=== PATIENT | female | born 1990 | race African-American/Black ===

== ENCOUNTER 2020-02-23 08:53 | Outpatient (CLI) | payer OTHER ==
[2020-02-23 18:54] LABS: SARS-CoV-2 MS2 Positive; SARS-CoV-2 N Gene Negative; SARS-CoV-2 S Gene Negative; SARS-CoV-2 by NAA Not Detected (NotDetected); SARS-CoV-2 orf1ab Negative
== END 2020-02-23 08:54 | disposition home or self-care (01) ==
LOC: LABSCS 08:53
PROVIDERS: ATTEND Emergency Medicine
DX: Z20.828 Contact with and (suspected) exposure to other viral communicable diseases (principal)
CPT/HCPCS: 87635; U0003

== ENCOUNTER 2020-02-26 08:43 | Day surgery (SDC) | payer OTHER ==
[2020-02-26 09:03] VITALS: BMI 24.5
[2020-02-26] MEDS ORDERED: Acetaminophen 500 MG TAB PO PRN (09:30)
[2020-02-26] MEDS ORDERED: Iron Sucrose Complex 500 MG in Sodium Chloride 0.9% 250 ML 250 ML IVPB SCH (09:30)
[2020-02-27] MEDS ORDERED: FLU VACC QS2020-21(6MOS UP)/PF 60 MCG/0.5 ML SYRINGE IM ONE (09:15)
== END 2020-02-26 14:50 | disposition home health service (06) ==
LOC: L&D/OP 08:43
PROVIDERS: ATTEND Emergency Medicine
DX: O99.013 Anemia complicating pregnancy, third trimester (principal); Z3A.00 Weeks of gestation of pregnancy not specified
CPT/HCPCS: J1756; J7050

== ENCOUNTER 2020-04-09 08:03 | Inpatient (IN) | payer OTHER ==
[2020-04-09 08:38] VITALS: BMI 27.1
[2020-04-09] MEDS ORDERED: Methylergonovine 0.2 MG/ML VIAL IM PRN (08:40)
[2020-04-09] MEDS ORDERED: Diphenoxylate HCl/Atropine Tablet PO PRN ×2 (08:40)
[2020-04-09] MEDS ORDERED: hydrALAZINE 20 MG/ML VIAL SLOW IVP PRN ×2 (08:40→17:16)
[2020-04-09] MEDS ORDERED: Acetaminophen 500 MG TAB PO PRN (08:40)
[2020-04-09] MEDS ORDERED: Ondansetron PF 4 MG/2 ML Vial IVP PRN ×3 (08:40→17:16)
[2020-04-09] MEDS ORDERED: Butorphanol Tartrate 1 MG/ML VIAL SLOW IVP PRN (08:40)
[2020-04-09] MEDS ORDERED: Carboprost 250 MCG/ML AMP IM PRN (08:40)
[2020-04-09] MEDS ORDERED: Misoprostol 200 MCG TAB PR PRN (08:40)
[2020-04-09] MEDS ORDERED: Ibuprofen 800 MG TAB PO PRN (08:40)
[2020-04-09] MEDS ORDERED: Promethazine HCl 25 MG/ML VIAL IM PRN ×2 (08:40→11:27)
[2020-04-09] MEDS ORDERED: Lidocaine 1% (PF) 30 ML VIAL SC PRN (08:40)
--- NOTE | 2020-04-09 08:40 | PDOC.FPROB ---
FMR OB H&P: HPI - History of Present Illness Chief Complaint: ctx Indentification: 29yo @ 38.3 by LMP /8.5wk sono History of Present Illness: 29yo @ 38.3 by LMP /8.5wk sono complicated by iron def anemia, Tob/THC use during presents for ctx. States onset of ctx last night at about 2200, intermittent, and able to sleep some overnight. This morning ctx q 10- 15min but increased intensity prompting visit to L&D. Denies VB, LOF, VD, dysuria, BRIAN, vision changes, CP, SOB, n/v. Endorses movement. Primary Care Physician: DORINA Stone FMR OB H&P: Current - Care : 9 Para: [id number] Gestational age: 38.3 Due date: 04/20/20 Dating Criteria: LMP/8.5wk sono Course/Complications: Tob use, THC use Iron def anemia - OB Labs Blood type: A RH: positive Antibody Screen: negative HIV: negative RPR: negative HepBsAg: negative Rubella: immune Gonorrhea: negative Chlamydia: negative Pap Smear: NILM 1 hour gtt: 65 A1c: 5.8 GBS: positive H&H: 9.2 - Additional Ultrasound Additional: 04/07 US Cephalic, placenta R lateral, SEGUNDO 4.66 FMR OB H&P: History - Past Medical History PMH: Denies - OB History OB History: Prior pregnancies with PreE and GDM - 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 No EtOH. - Family History Family History: Denies FMR OB H&P: Medications - Current Home Medications: Medication Instructions Recorded Confirmed Type Vitamin 1 tablet PO DAILY #0 tab 10/02/14 04/09/20 Rx Acyclovir 200 mg PO DAILY 04/09/20 04/09/20 History Allergies/Adverse Reactions: Allergies Allergy/AdvReac Type Severity Reaction Status Date / Time No Known Allergies Allergy Verified 08/09/19 22:23 FMR OB H&P: ROS - Review of Systems General: denies: fever/chills, night sweats, fatigue Eyes: denies: vision changes ENT: denies: nasal congestion, rhinorrhea, sore throat Cardiovascular: denies: chest pain, palpitation Respiratory: denies: cough, congestion, shortness of breath Gastrointestinal: denies: abdominal pain, indigestion Genitourinary (Female): reports: contractions. denies: dysuria, vaginal discharge, vaginal bleeding Musculoskeletal: denies: pain, stiffness Neurologic: denies: numbness Integumentary: denies: rash Psychological: denies: depression, anxiety FMR OB H&P: Vital Signs - Maternal Vital signs: Vital Signs - First Documented Temp Pulse Resp BP 99.1 F 78 18 110/61 04/09/20 08:29 04/09/20 08:29 04/09/20 08:29 04/09/20 08:29 - Heart Tones Baseline: 130 Variability: minimal Acceleration: present Deceleration: late (1 single shallow late, no recurrence) Category: category 2 [place] contractions every: 4min FMR OB H&P: Physical Exam - Physical Exam General: NAD, awake, alert and oriented HEENT: EOMI, MMM, conjunctiva clear Neck: supple, trachea midline Heart: RRR, normal S1/S2, no murmurs/rubs/gallops, no edema General: CTAB, no respiratory distress, good air movement, no wheezing Abdomen: soft, gravid, non-tender, bowel sound present Musculoskeletal: FROM in all four extremities Neurological: no focal deficit Skin: no rash Psychiatric: intact recent and remote memory, normal mood and affect - Pelvic Exam Vulva: normal hair distribution, no masses, no lesions, no discharge, no blood, normal rugae Cervix: no masses, no lesions, no blood SVE: 3.5/-1 FMR OB H&P: A/P - Problem List (1) Current Visit: No Status: Acute Qualifiers: Weeks of gestation: 38 weeks Qualified Code(s): Z3A.38 - 38 weeks gestation of Disposition: 29yo @ 38.3 by LMP /8.5wk sono presents with ctx #Term SIUP - 38.3wk - Placenta Right lateral - Was 2/20/-3 on 03/31 clinic SVE - SVE @ 0830 3.5 - Cat 2 strip with minimal variability and single late decel - Started on D5LR - Continuous monitoring - Admit for labor - expectant management #GBS positive - started on Galdino #Grandmultiparity - 2 16G IV - monitor for PPH #H/o HSV - No sxs, on Acyclovir - Spec exam negative for any lesions #Iron def anemia - s/p infusion on 02/25 - CBC on admission - monitor PP #Oligo - SEGUNDO 4.66 on US on 04/07 #Tob use during - counseled, aware #THC abuse - denies current use - UDS #Isolated EIF on anatomy - aware #H/o PreE - was on ASA, stopped about 1 week ago - initial BP WNL, monitor #H/o Trich and Chlamydia - Chlamydia negative this - Trich treated and VICTORINO negative #Elevated A1C - A1C 5.8, passed 1hr GTT - Will need PP monitor PCP: DORINA Stone IVF: D5LR @ 125cc/hr Diet: NPO ice chips VTE: Ambulate Discussion: Date/Time: 04/09/20 0840 This H&P was discussed with Dr. Castaneda who agrees with the above documentation and plan. Addendum - Attending - Attending Attestation Date/Time: 04/09/20 0932 I personally evaluated the patient and discussed the management with Dr. Griffith. I agree with the History, Examination, Assessment and Plan documented above with any addition or exceptions noted below. 29 yo at 38.3 wk dated by LMP c/w 8.6 wk US. presented with cc of contractions. /-1. intact. GBS positive. complicated by anemia and 1T THC use with subsequent negative UDS. SEGUNDO in clinic 4.88 cm on 04/07. Initially FHT cat 2 for minimal variability and one possible late decel both of which have revolved with D5LR. Given grandmultiparity and hx of precipitous deliveries plan to admit for latent labor and borderline oligo. GBS PPx started. will perform bedside SEGUNDO re-evaluate status. Expectant management at this time. Will augment after second dose PCN.
[2020-04-09] MEDS ORDERED: Penicillin G Potassium 5 MILL.UNITS in Sodium Chloride 0.9% 100 ML IVPB SCH (08:45)
[2020-04-09] MEDS ORDERED: Dextrose 5%-Lactated Ringers 1,000 ML IV SCH (08:45)
[2020-04-09] MEDS ORDERED: Penicillin G Potassium 5 MILL.UNITS VIAL ONE (08:51)
[2020-04-09] MEDS ORDERED: Bupivacaine 0.25% HCL 30 ML VIAL ONE (09:42)
[2020-04-09 10:09] LABS: Hemoglobin 10.5 g/dL (12.0-16.0); Mean Corpuscular HGB CONC 33.3 g/dL (32.0-36.0); Mean Corpuscular Hemoglobin 29.2 pg (27.0-31.0); Mean Corpuscular Volume 87.8 fL (78.0-98.0); Platelet Count 143 thou/uL (130-400); RBC Distribution Width 14.2 % (11.5-14.5); Red Blood Cell (RBC) Count 3.58 mill/uL (4.20-5.40); White Blood Cell (WBC) Count 7.9 thou/uL (4.8-10.8)
[2020-04-09 10:51] LABS: HBSAg Index 0.22 S/CO (0-0.99); Hep B Surf Ag Non-Reactive S/CO (NonReactive); Syphilis Antibody Nonreactive (Nonreactive); Syphilis Antibody Index 0.02 S/CO (<1.00 Non-Reactive)
--- NOTE | 2020-04-09 11:01 | PDOC.BPN ---
- Brief Progress Note Encounter Date: 04/09/20 Encounter Time: 09:30 Beside sono cephalic with SEGUNDO 2.8. FHT improved after administration of IVF, no further decels, accels, moderate variability, Cat 1. Q4-6min ctx.
[2020-04-09] MEDS ORDERED: Naloxone HCl 0.4 mg/ml Vial IV PRN ×2 (11:27)
[2020-04-09] MEDS ORDERED: Acetaminophen 325 MG TAB PO PRN (11:27)
[2020-04-09] MEDS ORDERED: diphenhydrAMINE 50 MG/ML VIAL IVP PRN (11:27)
[2020-04-09] MEDS ORDERED: ePHEDrine/0.9% NaCl/PF SYRINGE 50 mg/10 ml SLOW IVP PRN (11:30)
[2020-04-09] MEDS ORDERED: Hydrocerin (Eucerin) Cream 120 gm Jar TOP PRN (11:30)
[2020-04-09] MEDS ORDERED: Lactated Ringer's 500 ML IV PRN (11:30)
[2020-04-09] MEDS ORDERED: Fentanyl 4 mcg/Bup 0.1% Cadd 100 ML in Premix Bag 1 BAG EPIDURAL SCH (11:30)
--- NOTE | 2020-04-09 11:36 | PDOC.LDPN ---
Labor & Delivery Progress Note - Subjective Subjective: painful contractions - Objective Vital signs reviewed and normal: yes General: NAD, breathing through contractions Uterine fundus: non tender Dilation: 4 Effacement: 90% Station: -1 FHT: category 2, variable decelerations (x1), variability present [place] contractions every: 6-8 min Plan: continue plan of care -: 29yo @ 38.3 by LMP /8.5wk sono presents with ctx #Term SIUP - 38.3wk - Placenta Right lateral - Beside sono cephalic with SEGUNDO 2.8 - Was 07/08/-3 on 03/31 clinic SVE - SVE @ 0830 3.5/-1 - Cat 2 strip with minimal variability and single late decel - Started on D5LR - FHTs improved after D5LR - SVE @1115 /-1 - cat 2 strip, 1 variable decel, moderate variability, +accels, continue LR; wants epidural at this time - Continuous monitoring - Recheck @ 1330 after patient receives pencillin x2 #GBS positive - started on Galdino #Grandmultiparity - 2 16G IV - monitor for PPH #H/o HSV - No sxs, on Acyclovir - Spec exam negative for any lesions #Iron def anemia - s/p infusion on 02/25 - CBC on admission 10.5 - Type & Crossed - monitor PP #Oligo - SEGUNDO 4.66 on US on 04/07 - SEGUNDO on bedside sono today 2.8 cm #Tob use during - counseled, aware #THC abuse - denies current use - UDS #Isolated EIF on anatomy - aware #H/o PreE - was on ASA, stopped about 1 week ago - initial BP WNL, monitor #H/o Trich and Chlamydia - Chlamydia negative this - Trich treated and VICTORINO negative #Elevated A1C - A1C 5.8, passed 1hr GTT - Will need PP monitor PCP: DORINA Stone IVF: LR Diet: NPO ice chips VTE: Ambulate This H&P was discussed with Dr. Castaneda who agrees with the above documentation and plan.
[2020-04-09 11:45] LABS: Amphetamine Not Detected (NotDetected); Barbiturates Screen Not Detected (NotDetected); Benzodiazepine Screen Not Detected (NotDetected); Cocaine Metabolite Screen Not Detected (NotDetected); Medtox Control Line Valid? VALID (VALID); Medtox Reader # READER 1; Methadone Not Detected (NotDetected); Methamphetamine Not Detected (NotDetected); Opiate Screen Not Detected (NotDetected); Oxycodone Screen Not Detected (NotDetected); Phencyclidine (PCP) Not Detected (NotDetected); THC/Cannabinoid Screen Not Detected (NotDetected); Tricyclic Screen Not Detected (NotDetected)
[2020-04-09] MEDS ORDERED: Lactated Ringer's 1,000 ML IV SCH (12:00)
[2020-04-09] MEDS: Penicillin G 2.5 MILL.units 2.5 MILL.UNITS in Premix Bag 1 BAG IVPB SCH ×2 (12:56→17:45)
--- NOTE | 2020-04-09 13:41 | PDOC.LDPN ---
Labor & Delivery Progress Note - Subjective Subjective: comfortable - Objective Vital signs reviewed and normal: yes General: NAD Uterine fundus: non tender Dilation: 5 Effacement: 100% Station: -1 FHT: category 2, late decelerations, variability present (moderate) [place] contractions every: 2-3 min AROM: meconium stained fluid (thick) Plan: continue plan of care -: 29yo @ 38.3 by LMP /8.5wk sono presents with ctx #Term SIUP - 38.3wk - Placenta Right lateral - Beside sono cephalic with SEGUNDO 2.8 - Was 07/08/-3 on 03/31 clinic SVE - SVE @ 0830 3.5//-1 - Cat 2 strip with minimal variability and single late decel - Started on D5LR - FHTs improved after D5LR - SVE @1115 /-1 - cat 2 strip, 1 variable decel, moderate variability, +accels, continue LR; wants epidural at this time - SVE @1321 5/100/-2, cat 2 strip, single late decel, moderate variability, - accels, baseline 140s, neri q2-3 min - Continuous monitoring - Recheck @1521 #GBS positive - started on Galdino #Grandmultiparity - 2 16G IV - monitor for PPH #H/o HSV - No sxs, on Acyclovir - Spec exam negative for any lesions #Iron def anemia - s/p infusion on 02/25 - CBC on admission 10.5 - Type & Crossed - monitor PP #Oligo - SEGUNDO 4.66 on US on 04/07 - SEGUNDO on bedside sono today 2.8 cm #Tob use during - counseled, aware #THC abuse - denies current use - UDS #Isolated EIF on anatomy - aware #H/o PreE - was on ASA, stopped about 1 week ago - initial BP WNL, monitor #H/o Trich and Chlamydia - Chlamydia negative this - Trich treated and VICTORINO negative #Elevated A1C - A1C 5.8, passed 1hr GTT - Will need PP monitor PCP: DORINA Stone IVF: LR Diet: NPO ice chips VTE: Ambulate This H&P was discussed with Dr. Castaneda who agrees with the above documentation and plan.
--- NOTE | 2020-04-09 14:01 | PDOC.LDPN ---
Labor & Delivery Progress Note - Subjective Subjective: comfortable - Objective Vital signs reviewed and normal: yes General: resting Uterine fundus: non tender Dilation: 9 Effacement: 100% Station: 0 FHT: category 1 [place] contractions every: 2min AROM: meconium stained fluid -: 29yo @38.3 by LMP /8.5wk sonsimón presents with ctx Term SIUP - SVE 9/100/0, Cat 1 strip. GBS positive - Galdino x2 Grandmultiparity - 2 16G IV - monitor for PPH H/o HSV - No sxs, on Acyclovir - Spec exam negative for any lesions Iron def anemia - s/p infusion on 02/25 - CBC on admission 10.5 - Type & Crossed - monitor PP Oligo - SEGUNDO 4.66 on US on 04/07 - SEGUNDO on bedside sono today 2.8 cm Tob use during - counseled, aware THC abuse - denies current use - UDS Isolated EIF on anatomy H/o PreE - was on ASA, stopped about 1 week ago - initial BP WNL, monitor H/o Trich and Chlamydia - Chlamydia negative this - Trich treated and VICTORINO negative Elevated A1C - A1C 5.8, passed 1hr GTT - Will need PP monitor PCP: DORINA Stone
[2020-04-09] MEDS: NS / Oxytocin 40 units/1000ml 1,000 ML IV PRN ×2 (14:16→15:33)
[2020-04-09] MEDS ORDERED: Lanolin Ointment 7 GM TUBE TOP PRN (17:16)
[2020-04-09] MEDS ORDERED: Adacel (T-DAP) 0.5 ML SYRINGE IM ONE (17:16)
[2020-04-09] MEDS ORDERED: NS / Oxytocin 40 units/1000ml 1,000 ML IV SCH (17:16)
[2020-04-09] MEDS ORDERED: Milk Of Magnesia 30 ML UDCUP PO PRN (17:16)
[2020-04-09] MEDS ORDERED: Bisacodyl 10 MG SUPP PR PRN (17:16)
[2020-04-09] MEDS ORDERED: Ferrous Sulfate 325 MG TAB PO SCH (17:30)
--- NOTE | 2020-04-09 18:31 | PDOC.OPDEL ---
OB Operative/Delivery Note Delivery Dr/Surgeon: Javi/Leonel - Additional Findings/Plan Compilations/Other Findings: Delivering Physician: Armando/Chase Attending: Ismael Castaneda MD Procedure: Spontaneous Vaginal Delivery QBL: 311 ml Pre-op Diagnosis: 1. Term intrauterine in labor 2. Oligohydramnios 3. IUGR 4. Iron def anemia 5. Tob/THC use in 6. GBS Positive 7. Grandmultiparity 8. H/o HSV 9. H/o PreE 10. Hx Trich and Chlamydia Post-op Diagnosis: 1. Term intrauterine , delivered 4. Iron def anemia 5. Tob/THC use in 6. GBS Positive 7. Grandmultiparity 8. H/o HSV 9. H/o PreE 10. Hx Trich and Chlamydia Indications: A 29y/o female @ 38.3 presents with contractions and was induced due to oligohydramnios Delivery Note: This is 29yo F @ 38.3weeks who delivered a viable M infant at 1415 on 04/09/2020. Following an antepartum course complicated by thick meconium on AROM and rare late decels, a vigorous M was delivered over an intact perineum in the occipitoanterior position. Patient received 2 full doses of penicillin before AROM. Anterior Shoulder and then remainder of the body delivered. Nuchal cord x1. The head was held down and mouth and nares were bulb suctioned. Cord clamped and cut and cord blood collected. Placenta delivered intact with a 3 vessel cord noted. Fundal massage was performed and the fundus was firm. The cervix and vagina were inspected and found to be free of lacerations. went to nursery in good condition for routine care. Apgars were 8/9 at 1 & 5 minutes, respectively. Patient tolerated delivery well and went to after routine recovery/care. ATTENDING ADDENDUM: I was present for and supervised all draper steps of this delivery.
[2020-04-09 18:40] LABS: SARS-CoV-2 MS2 Positive; SARS-CoV-2 N Gene Negative; SARS-CoV-2 S Gene Negative; SARS-CoV-2 by NAA Not Detected (NotDetected); SARS-CoV-2 orf1ab Negative
[2020-04-09] MEDS: Ibuprofen 800 MG TAB PO SCH (19:32)
--- NOTE | 2020-04-10 00:30 | PDOC.PP ---
Post Progress Note Post Day #: 1 Subjective: Pain well controlled. Breast and bottle feeding. Ambulating, tolerating PO, no problems with urination. Minimal lochia PO intake tolerated: yes Flatus: yes Ambulation: yes Vital Signs (12 hours) Temp Pulse Resp BP Pulse Ox 04/09/20 18:10 98.9 F 80 16 113/52 L 04/09/20 17:55 100 04/09/20 17:16 98.9 F 79 18 122/66 100 Weight Weight 76.204 kg - Physical Examination General: NAD Cardiovascular: no m/r/g, RRR Respiratory: clear to auscultation bilaterally, non-labored breathing Abdominal: + bowel sounds, appropriately TTP Fundus firm & at: umbilicus Neurological: no gross focal deficits Psychiatric: A&Ox3, normal affect Result Diagrams: 04/10/20 06:19 Additional Labs: Post Labs Hep Bs Antigen Non-Reactive S/CO (NonReactive) 04/09/20 09:52 Blood Type A POSITIVE 04/09/20 09:52 - Assessment/Plan 29yo now @38.3 by LMP /8.5wk mitch presents with ctx sIUP, PPD #1 - Meeting PP milestones - Continue routine care. COVID pending. - Possible dc later today vs tomorrow. F/u at [facility] in 2 wks - Consider CM consult due to pt not having custody of some of children. Iron def anemia - s/p infusion on 02/25 - Hgb 10.5-> 10.3 - Total QBL so far: 395 H/o HSV Tob use during - Encourage cessation outside of THC abuse - UDS neg as well as babies UDS H/o PreE - BPs <140/90 Elevated A1C - A1C 5.8, passed 1hr GTT - Needs 2hr at 6wks PP Addendum - Attending - Attending Attestation Date/Time: 04/10/20 0946 I personally evaluated the patient and discussed the management with Dr. Stone. I agree with the History, Examination, Assessment and Plan documented above with any addition or exceptions noted below. d/c this afternoon.
[2020-04-10 06:36] LABS: Hemoglobin 10.3 g/dL (12.0-16.0)
[2020-04-10] MEDS: Ibuprofen 800 MG TAB PO SCH ×3 (06:57→14:25)
[2020-04-10] MEDS: Docusate Calcium (SURFAK) 240 MG CAP PO SCH ×2 (06:57→07:53)
[2020-04-10] MEDS: Ferrous Sulfate 325 MG TAB PO SCH ×2 (07:54→13:21)
[2020-04-10] MEDS ORDERED: Polyethylene Glycol 3350 17 GM Packet PO SCH (09:00)
[2020-04-10] MEDS ORDERED: FLU VACC QS2020-21(6MOS UP)/PF 60 MCG/0.5 ML SYRINGE IM ONE (09:00)
[2020-04-10] MEDS ORDERED: Acyclovir 200 mg Capsule PO SCH (09:00)
[2020-04-10] MEDS ORDERED: Prenatal Vitamin 1 TAB PO SCH (09:00)
[2020-04-10 11:48] VITALS: BP 103/59; TEMP 98.3
== END 2020-04-10 16:52 | disposition home or self-care (01) | DRG 806 ==
LOC: L&D/OP 08:03 → L&D 10:49 → 3SE 17:15
PROVIDERS: ADMIT Family Medicine; ATTEND Family Medicine
PROC: 10E0XZZ Delivery of Products of Conception, External Approach (ICD-10-PCS; principal; 2020-04-09)
PROC: 10907ZC Drainage of Amniotic Fluid, Therapeutic from Products of Conception, Via Natural or Artificial Opening (ICD-10-PCS; 2020-04-09)
PROC: 3E033VJ Introduction of Other Hormone into Peripheral Vein, Percutaneous Approach (ICD-10-PCS; 2020-04-09)
PROC: 3E0P7VZ Introduction of Hormone into Female Reproductive, Via Natural or Artificial Opening (ICD-10-PCS; 2020-04-09)
DX: O76 Abnormality in fetal heart rate and rhythm complicating labor and delivery (principal); O41.03X0 Oligohydramnios, third trimester, not applicable or unspecified; Z37.0 Single live birth; O99.324 Drug use complicating childbirth; O99.824 Streptococcus B carrier state complicating childbirth; O99.02 Anemia complicating childbirth; Z20.828 Contact with and (suspected) exposure to other viral communicable diseases; D50.9 Iron deficiency anemia, unspecified; F12.90 Cannabis use, unspecified, uncomplicated; O99.334 Smoking (tobacco) complicating childbirth; F17.210 Nicotine dependence, cigarettes, uncomplicated; O36.5930 Maternal care for other known or suspected poor fetal growth, third trimester, not applicable or unspecified; O77.0 Labor and delivery complicated by meconium in amniotic fluid; O69.81X0 Labor and delivery complicated by cord around neck, without compression, not applicable or unspecified; O32.2XX0 Maternal care for transverse and oblique lie, not applicable or unspecified; Z3A.38 38 weeks gestation of pregnancy
CPT/HCPCS: 36415; 51702; 76815; 80306; 85014; 85018; 85027; 86780; 86850; 86900; 86901; 87340; 87635; 88307; 99285; J2001; J2540; S0020; U0003

== ENCOUNTER 2020-10-11 21:40 | Emergency (ER) | payer OTHER ==
[2020-10-11] MEDS ORDERED: Promethazine HCl 25 MG/ML VIAL ONE (21:45)
[2020-10-11 22:17] LABS: Hemoglobin 12.1 g/dL (12.0-16.0); Mean Corpuscular Volume 90.5 fL (78.0-98.0); RBC Distribution Width 12.8 % (11.5-14.5); Red Blood Cell (RBC) Count 4.16 mill/uL (4.20-5.40); White Blood Cell (WBC) Count 4.8 thou/uL (4.8-10.8)
[2020-10-11 22:27] LABS: BHCG - Serum Negative (NEGATIVE); Pregs Control Background? CLEAR/WHITE (CLR/WHITE); Pregs Control Bar Appear? YES (CONTROL BAR)
[2020-10-11 22:29] LABS: Acetaminophen Less than 6.0 mcg/mL (10.0-30.0); Alcohol 147 mg/dL (Less than 10); Salicylate Less than 8.0 mg/dL (15.0-30.0)
[2020-10-11 22:33] LABS: Band 3 % (5-11); Lymphocytes 52 % (21-51); MDiff Complete? YES; Monocytes 14 % (0-10); Neutrophil 31 % (42-75); Platelet Count 106 thou/uL (130-400); Platelet Morphology Comment Appears Decreased
[2020-10-11 22:36] LABS: ALT (SGPT) 10 U/L (8-55); AST (SGOT) 16 U/L (5-34); Albumin 4.2 g/dL (3.5-5.0); Alkaline Phosphatase 50 U/L (40-110); Anion Gap 17 mmol/L (10-20); BUN (Urea Nitrogen) 4 mg/dL (7.0-18.7); Bilirubin, Total 0.4 mg/dL (0.2-1.2); Calc. Creatinine Clearance 0 mL/min (70-130); Calcium 8.5 mg/dL (7.8-10.44); Carbon Dioxide 20 mmol/L (22-29); Chloride 110 mmol/L (98-107); Globulin 2.7 g/dL (2.4-3.5); Glucose 92 mg/dL (70-105); Protein, Total 6.9 g/dL (6.0-8.3); Sodium 143 mmol/L (136-145)
[2020-10-11 22:40] LABS: Potassium 2.9 mmol/L (3.5-5.1)
[2020-10-11] MEDS ORDERED: Potassium Chloride 20 MEQ TAB ONE (22:41)
== END 2020-10-11 22:50 | disposition left against medical advice (07) ==
LOC: ERS 21:40
DX: F10.129 Alcohol abuse with intoxication, unspecified (principal); E87.6 Hypokalemia; R11.2 Nausea with vomiting, unspecified; F17.210 Nicotine dependence, cigarettes, uncomplicated; Y90.6 Blood alcohol level of 120-199 mg/100 ml
CPT/HCPCS: 36415; 80053; 80307; 84703; 85025; 93005; 96365; J2550

== ENCOUNTER 2022-05-30 20:05 | Emergency (ER) | payer OTHER ==
[2022-05-30] MEDS ORDERED: Acetaminophen 500 MG TAB ONE (20:34)
[2022-05-30 21:13] LABS: Bilirubin Negative (Negative); Blood, Urine Negative (Negative); Clarity Turbid (Clear); Glucose, Urine (Dipstick) Normal (Negative); Ketone, Urine Negative (Negative); Leukocyte 25 Leu/uL (Negative); Nitrite Negative (Negative); Protein, Urine (Dipstick) 20 mg/dL (Neg-Trace); WBC/HPF 0-3 HPF (0-3); pH, Urine 6.5 (5.0-9.0)
[2022-05-30 21:32] LABS: Bacteria/HPF 1+ HPF (None Seen)
== END 2022-05-30 22:36 | disposition home or self-care (01) ==
LOC: ERS 20:05
DX: O23.41 Unspecified infection of urinary tract in pregnancy, first trimester (principal); N39.0 Urinary tract infection, site not specified; O99.331 Smoking (tobacco) complicating pregnancy, first trimester; F17.210 Nicotine dependence, cigarettes, uncomplicated; Z3A.01 Less than 8 weeks gestation of pregnancy
CPT/HCPCS: 36415; 76856; 81003; 81015; 84702; 87086; 93976

== ENCOUNTER 2022-06-03 05:38 | Emergency (ER) | payer OTHER ==
[2022-06-03] MEDS ORDERED: Acetaminophen 500 MG TAB ONE (06:08)
== END 2022-06-03 06:45 | disposition home or self-care (01) ==
LOC: ERS 05:38
DX: S09.90XA Unspecified injury of head, initial encounter (principal); H92.02 Otalgia, left ear; F17.210 Nicotine dependence, cigarettes, uncomplicated; Y04.2XXA Assault by strike against or bumped into by another person, initial encounter; Z79.899 Other long term (current) drug therapy
CPT/HCPCS: 99283

== ENCOUNTER 2022-07-17 11:00 | Emergency (ER) | payer OTHER | END 2022-07-17 11:36 | disposition left against medical advice (07) | LOC: ERS 11:00 | DX: Z53.21 Procedure and treatment not carried out due to patient leaving prior to being seen by health care provider (principal) ==

== ENCOUNTER 2022-07-26 07:12 | Emergency (ER) | payer OTHER | END 2022-07-26 10:20 | disposition left against medical advice (07) | LOC: ERS 07:12 | DX: O99.891 Other specified diseases and conditions complicating pregnancy (principal); R09.81 Nasal congestion; Z53.29 Procedure and treatment not carried out because of patient's decision for other reasons; Z3A.01 Less than 8 weeks gestation of pregnancy; Z20.822 Contact with and (suspected) exposure to COVID-19 | CPT/HCPCS: 87081; 87430; 87804; U0003; U0005 ==

== ENCOUNTER 2023-06-16 21:11 | Emergency (ER) | payer OTHER, SELFPAY ==
[2023-06-16] MEDS ORDERED: Bicillin LA 1.2 MILLION UNITS/2 ML SYRINGE ONE (21:53)
== END 2023-06-16 22:30 | disposition home or self-care (01) ==
LOC: ERS 21:11
DX: J02.0 Streptococcal pharyngitis (principal); F17.210 Nicotine dependence, cigarettes, uncomplicated
CPT/HCPCS: 96372; 99282; J0561

== ENCOUNTER 2024-02-05 11:04 | Emergency (ER) | payer OTHER, SELFPAY | END 2024-02-05 11:41 | disposition home or self-care (01) | LOC: ERS 11:04 | DX: K02.9 Dental caries, unspecified (principal); F17.210 Nicotine dependence, cigarettes, uncomplicated | CPT/HCPCS: 99282 ==

== ENCOUNTER 2025-04-27 08:27 | Emergency (ER) | payer OTHER, SELFPAY ==
[2025-04-27] MEDS ORDERED: Acetaminophen 500 MG TAB ONE (09:40)
== END 2025-04-27 12:27 | disposition home or self-care (01) ==
LOC: ERS 08:27
DX: O9A.213 Injury, poisoning and certain other consequences of external causes complicating pregnancy, third trimester (principal); S39.012A Strain of muscle, fascia and tendon of lower back, initial encounter; O99.333 Smoking (tobacco) complicating pregnancy, third trimester; F17.210 Nicotine dependence, cigarettes, uncomplicated; W19.XXXA Unspecified fall, initial encounter; Z3A.33 33 weeks gestation of pregnancy
CPT/HCPCS: 76815; 99283